=== PATIENT | male | born 1955 | race Hispanic/Latino ===

== ENCOUNTER 2024-12-08 12:27 | Outpatient (CLI) | payer MEDICARE ==
[2024-12-08 13:35] LABS: #Basophils Less than 0.03 10x3/uL (0.0-0.2); #Eosinophils 0.08 10x3/uL (0.0-0.7); #Monocytes 0.44 10x3/uL (0.11-0.59); #Neutrophils 4.62 10x3/uL (1.40-6.50); %Basophils 0.2 % (0.0-1.0); %Eosinophils 1.2 % (0.0-10.0); %Lymphocytes 22.4 % (21.0-51.0); %Monocytes 6.6 % (0.0-10.0); %Neutrophils 69.3 % (42.0-75.0); Hematocrit 45.3 % (42.0-52.0); Hemoglobin 14.9 g/dL (14.0-18.0); Mean Corpuscular Hemoglobin 30.9 pg (27.0-31.0); Mean Corpuscular Volume 94.0 fL (78.0-98.0); Platelet Count 145 10x3/uL (130-400); Red Blood Cell (RBC) Count 4.82 mill/uL (4.70-6.10); White Blood Cell (WBC) Count 6.66 10x3/uL (4.8-10.8)
[2024-12-08 13:59] LABS: Anion Gap 13 mmol/L (10-20); BUN (Urea Nitrogen) 14 mg/dL (8.4-25.7); Calc. Creatinine Clearance 0 mL/min (70-130); Calcium 9.2 mg/dL (7.8-10.44); Carbon Dioxide 26 mmol/L (23-31); Chloride 105 mmol/L (98-107); Glucose 80 mg/dL (80-115); Potassium 3.9 mmol/L (3.5-5.1); Sodium 140 mmol/L (136-145)
== END 2024-12-08 12:28 | disposition home or self-care (01) ==
LOC: LABBT 12:27
PROVIDERS: ATTEND Orthopaedic Surgery
DX: Z01.818 Encounter for other preprocedural examination (principal); S56.022A Laceration of flexor muscle, fascia and tendon of left thumb at forearm level, initial encounter; S64.32XA Injury of digital nerve of left thumb, initial encounter
CPT/HCPCS: 71046; 80048; 85025; 93005; 93010

== ENCOUNTER 2024-12-10 06:17 | Day surgery (SDC) | payer SELFPAY ==
[2024-12-08 12:55] VITALS: BMI 24.4
[2024-12-10] MEDS ORDERED: Bacitracin Zinc Ointment 30 gm TUBE ONE (08:31)
[2024-12-10] MEDS ORDERED: PROPOFOL 20 ML ONE (08:42)
[2024-12-10] MEDS ORDERED: fentaNYL PF 100 MCG/2 ML SYRINGE ONE ×2 (08:42→09:46)
[2024-12-10] MEDS ORDERED: CEFAZOLIN 2 GM VIAL ONE (08:44)
[2024-12-10] MEDS ORDERED: PROPOFOL 40 ML ONE (09:50)
== END 2024-12-10 11:13 | disposition home or self-care (01) ==
LOC: SDC 06:17
PROVIDERS: ATTEND Orthopaedic Surgery
DX: S62.522B Displaced fracture of distal phalanx of left thumb, initial encounter for open fracture (principal); S62.512B Displaced fracture of proximal phalanx of left thumb, initial encounter for open fracture; S56.022A Laceration of flexor muscle, fascia and tendon of left thumb at forearm level, initial encounter; S64.32XA Injury of digital nerve of left thumb, initial encounter; F17.200 Nicotine dependence, unspecified, uncomplicated; W31.2XXA Contact with powered woodworking and forming machines, initial encounter
CPT/HCPCS: A6223; C1894; J0665; J2250; J2704